=== PATIENT | female | born 1945 | race Caucasian/White ===

== ENCOUNTER → 2024-03-05 16:18 | Outpatient (REF) | payer MEDICARE, BC, SELFPAY | LOC: RAD 16:18 | PROVIDERS: ATTENDING PHYSICIAN Nurse Practitioner Family; FAMILY PHYSICIAN Family Medicine | DX: M79.661 Pain in right lower leg (principal); M79.609 Pain in unspecified limb | CPT/HCPCS: 93971 ==

== ENCOUNTER → 2024-04-06 13:01 | Outpatient (REF) | payer MEDICARE, BC, SELFPAY | LOC: HWRCS 13:01 | PROVIDERS: ATTENDING PHYSICIAN Internal Medicine; FAMILY PHYSICIAN Family Medicine | DX: Z95.2 Presence of prosthetic heart valve (principal) | CPT/HCPCS: 93306 ==

== ENCOUNTER → 2024-05-10 13:00 | Outpatient (REF) | payer MEDICARE, BC, SELFPAY | LOC: RAD 13:00 | PROVIDERS: ATTENDING PHYSICIAN Internal Medicine; FAMILY PHYSICIAN Family Medicine | DX: I65.21 Occlusion and stenosis of right carotid artery (principal) | CPT/HCPCS: 93880 ==

== ENCOUNTER → 2024-07-04 15:23 | Outpatient (REF) | payer MEDICARE, BC, SELFPAY | LOC: RAD 15:23 | PROVIDERS: ATTENDING PHYSICIAN Internal Medicine Critical Care Medicine | DX: J98.4 Other disorders of lung (principal) | CPT/HCPCS: 71046 ==